=== PATIENT | male | born 1945 | race Two or more races ===

== ENCOUNTER 2017-03-19 15:42 | Outpatient (CLI) | payer OTHER ==
[~2017-03-19 15:42] MED LIST: KETO10TA2 PO; PEPCID20 MG PO; SEPTRA 80-400 T1 TAB PO; TAMS0.4C PO
== END 2017-03-19 15:56 | disposition home or self-care (01) ==
LOC: LAB 15:42
DX: L08.0 Pyoderma (principal)

== ENCOUNTER 2017-04-19 07:50 | Outpatient (CLI) | payer OTHER | END 2017-04-19 14:35 | disposition home or self-care (01) | LOC: SONOGRAMA 07:50 | DX: R10.9 Unspecified abdominal pain (principal) ==

== ENCOUNTER 2017-04-19 09:11 | Outpatient (CLI) | payer OTHER | END 2017-04-19 09:21 | disposition home or self-care (01) | LOC: LAB 09:11 | DX: R10.13 Epigastric pain (principal) ==

== ENCOUNTER 2017-10-10 08:35 | Outpatient (CLI) | payer OTHER | END 2017-10-10 08:45 | disposition home or self-care (01) | LOC: LAB 08:35 | DX: Z51.81 Encounter for therapeutic drug level monitoring (principal) ==

== ENCOUNTER 2017-11-08 22:13 | Emergency (ER) | payer OTHER ==
[~2017-11-08] VITALS: Ht 160 cm; Wt 63.0 kg
[~2017-11-08 22:13] MED LIST changes: +AMBIEN CR12.5 MG; +NORVASC5 MG
== END 2017-11-09 18:10 | disposition home or self-care (01) ==
LOC: ER 22:13
DX: R55 Syncope and collapse (principal)

== ENCOUNTER → 2018-01-09 06:56 | Outpatient (CLI) | payer OTHER | END | disposition home or self-care (01) | LOC: LAB 06:56 | DX: N28.89 Other specified disorders of kidney and ureter (principal) ==

== ENCOUNTER → 2018-08-12 | Outpatient (CLI) | payer OTHER | END | disposition home or self-care (01) | LOC: RAD 14:34 | DX: R05 Cough (principal) ==

== ENCOUNTER → 2018-12-30 13:59 | Outpatient (CLI) | payer OTHER | END | disposition home or self-care (01) | LOC: LAB 13:59 | DX: N30.00 Acute cystitis without hematuria (principal); R97.21 Rising PSA following treatment for malignant neoplasm of prostate ==

== ENCOUNTER 2019-03-28 08:42 | Outpatient (CLI) | payer OTHER | END 2019-03-28 08:50 | disposition home or self-care (01) | LOC: LAB 08:42 | DX: G47.09 Other insomnia (principal); I10 Essential (primary) hypertension ==

== ENCOUNTER 2019-04-09 09:52 | Outpatient (CLI) | payer OTHER | END 2019-04-09 10:06 | disposition home or self-care (01) | LOC: LAB 09:52 | DX: Z13.29 Encounter for screening for other suspected endocrine disorder (principal) ==

== ENCOUNTER → 2019-04-09 | Outpatient (CLI) | payer OTHER | END | disposition home or self-care (01) | LOC: SONOGRAMA 10:22 | DX: Z13.29 Encounter for screening for other suspected endocrine disorder (principal) ==

== ENCOUNTER 2019-07-04 12:11 | Emergency (ER) | payer OTHER ==
[~2019-07-04] VITALS: Ht 160 cm; Wt 66.2 kg
[2019-07-04] MEDS ORDERED: TAMS0.4C (12:36)
[2019-07-04] MEDS ORDERED: PROSCAR5 MG (12:37)
[2019-07-04] MEDS ORDERED: PROTONIX40 MG (12:37)
== END 2019-07-04 14:04 | disposition home or self-care (01) ==
LOC: ER 12:11
DX: N48.1 Balanitis (principal)

== ENCOUNTER → 2019-07-25 09:02 | Outpatient (CLI) | payer OTHER ==
[~2019-07-25 09:02] MED LIST changes: +PROSCAR5 MG; +PROTONIX40 MG; +TAMS0.4C
== END | disposition home or self-care (01) ==
LOC: LAB 09:02
PROVIDERS: ATTEND Internal Medicine Gastroenterology
DX: R10.13 Epigastric pain (principal); Z12.11 Encounter for screening for malignant neoplasm of colon

== ENCOUNTER → 2020-05-13 08:11 | Outpatient (CLI) | payer OTHER | END | disposition home or self-care (01) | LOC: LAB 08:11 | PROVIDERS: ATTEND Specialist | DX: R51.9 Headache, unspecified (principal); I10 Essential (primary) hypertension; R60.9 Edema, unspecified ==

== ENCOUNTER 2020-05-18 09:39 | Outpatient (CLI) | payer OTHER | END 2020-05-18 09:49 | disposition home or self-care (01) | LOC: TOM 09:39 | PROVIDERS: ATTEND Specialist | DX: G93.89 Other specified disorders of brain (principal); R51.0 Headache with orthostatic component, not elsewhere classified; I10 Essential (primary) hypertension; R60.1 Generalized edema ==

== ENCOUNTER → 2020-06-01 09:06 | Outpatient (CLI) | payer OTHER | END | disposition home or self-care (01) | LOC: LAB 09:06 | PROVIDERS: ATTEND Specialist | DX: R94.6 Abnormal results of thyroid function studies (principal); R73.9 Hyperglycemia, unspecified ==

== ENCOUNTER 2020-06-01 09:45 | Outpatient (CLI) | payer OTHER | END 2020-06-01 09:57 | disposition home or self-care (01) | LOC: SONOGRAMA 09:45 | PROVIDERS: ATTEND Specialist | DX: R94.6 Abnormal results of thyroid function studies (principal); R73.9 Hyperglycemia, unspecified ==

== ENCOUNTER → 2020-07-12 08:28 | Outpatient (CLI) | payer OTHER | END | disposition home or self-care (01) | LOC: LAB 08:28 | PROVIDERS: ATTEND Specialist | DX: E03.9 Hypothyroidism, unspecified (principal); E78.5 Hyperlipidemia, unspecified ==

== ENCOUNTER → 2020-11-12 08:04 | Outpatient (CLI) | payer OTHER | END | disposition home or self-care (01) | LOC: LAB 08:04 | PROVIDERS: ATTEND Urology | DX: R97.21 Rising PSA following treatment for malignant neoplasm of prostate (principal); N30.00 Acute cystitis without hematuria ==

== ENCOUNTER 2021-11-23 09:20 | Outpatient (CLI) | payer OTHER | END 2021-11-23 09:32 | disposition home or self-care (01) | LOC: LAB 09:20 | PROVIDERS: ATTEND Specialist | DX: R73.03 Prediabetes (principal) ==

== ENCOUNTER 2024-05-17 17:47 | Emergency (ER) | payer OTHER ==
[~2024-05-17] VITALS: Ht 157.5 cm; Wt 68.9 kg
[2024-05-17] MEDS ORDERED: PROTONIX40 M1 (18:24)
[2024-05-17] MEDS ORDERED: LIPITOR40 M1 (18:25)
[2024-05-17] MEDS ORDERED: LEVOTHYROXINE25 MCG (18:25)
[2024-05-17] MEDS ORDERED: CLINDAMYCIN PHOSPHATE 150 MG/ML (900mg) IV STA (20:14)
[2024-05-17] MEDS ORDERED: CLINDAMYCIN PHOSPHATE 150 MG/ML (900mg) ONE (20:27)
== END 2024-05-17 22:46 | disposition home or self-care (01) ==
LOC: ER 17:49
DX: L02.425 Furuncle of right lower limb (principal)
CPT/HCPCS: 96365; 99282; J3490